=== PATIENT | male | born 1975 | race Caucasian/White ===

== ENCOUNTER 2022-08-19 14:32 | Emergency (ER) | payer OTHER ==
--- NOTE | 2022-08-19 16:08 | RAD REPORT ---
EXAM DESCRIPTION: RAD - Knee Left 3 View - 08/19/2022 3:16 pm CLINICAL HISTORY: PAIN COMPARISON: No comparisons TECHNIQUE: Left knee, 3 views. FINDINGS: No fracture, dislocation or periosteal reaction.No joint effusion seen. Advanced tricompar tmental osteoarthritic changes, with osseous remodeling. Mild joint space narrowing along the medial weight-bearing and patellofemoral compartments. No significant soft tissue swelling. IMPRESSION: No acute osseous abnormality. Tricompartmental osteoarthritic changes as above.
--- NOTE | 2022-08-19 16:10 | ER ---
Nurse's Notes [facility] Name: Yury Reina Age: 47 yrs Sex: Male : 1975 Arrival Date: 08/19/2022 Time: 14:34 Bed IW2 Private MD: Diagnosis: Pain in left knee Presentation: 08/19 14:47 Chief complaint: Patient states: he has been having knee pain for approx 6 months, and ap3 felt a "pop" last night that caused increased swelling. patient rates pain as a 7/10 on a pain scale at this time. Coronavirus screen: At this time, the client does not indicate any symptoms associated with coronavirus-19. Ebola Screen: No symptoms or risks identified at this time. Initial Sepsis Screen: Does the patient meet any 2 criteria? No. Patient's initial sepsis screen is negative. Does the patient have a suspected source of infection? No. Patient's initial sepsis screen is negative. Risk Assessment: Do you want to hurt yourself or someone else? Patient reports no desire to harm self or others. Onset of symptoms is unknown. 14:47 Method Of Arrival: Ambulatory ap3 14:47 Acuity: MANUEL 4 ap3 Triage Assessment: 14:49 General: Appears uncomfortable, Behavior is calm, cooperative, appropriate for age. ap3 Pain: Complains of pain in left knee Pain currently is 7 out of 10 on a pain scale. Neuro: Level of Consciousness is awake, alert, obeys commands, Oriented to person, place, time, situation. Cardiovascular: Patient's skin is warm and dry. Respiratory: Airway is patent Respiratory effort is even, unlabored, Respiratory pattern is regular, symmetrical. Historical: - Allergies: 14:49 No Known Allergies; ap3 - Home Meds: 14:49 None [Active]; ap3 - PMHx: 14:49 None; ap3 - Immunization history:: Client reports having NOT received the Covid vaccine. - Social history:: Smoking status: Patient reports use of chewing tobacco. Assessment: 16:29 Reassessment: Patient appears in no apparent distress at this time. Patient is alert, vg1 oriented x 3, equal unlabored respirations, skin warm/dry/pink. Pain: Complains of pain in left knee. Derm:. Musculoskeletal: Circulation, motion, and sensation intact. Vital Signs: 14:47 BP 109 / 77; Pulse 81; Resp 18; Temp 98.2; Pulse Ox 100% ; Weight 113.4 kg; Height 5 ap3 ft. 9 in. ; Pain 7/10; 14:47 Body Mass Index 36.92 (113.40 kg, 175.26 cm) ap3 14:47 Pain Scale: Adult ap3 ED Course: 14:34 Patient arrived in ED. mr 14:39 Billie Champion FNP-C is [facility]. kb 14:39 Haile Orellana MD is Attending Physician. kb 14:49 Triage completed. ap3 14:50 Arm band placed on left wrist. ap3 14:50 Patient has correct armband on for positive identification. ap3 15:18 Knee Left 3 View XRAY In Process Unspecified. EDMS 16:10 Jorge Gamino MD is Referral Physician. kb 16:36 No provider procedures requiring assistance completed. Patient did not have IV access vg1 during this emergency room visit. Administered Medications: 16:20 Drug: Ketorolac IM 30 mg Route: IM; Site: left deltoid; vg1 16:29 Follow up: Response: No adverse reaction vg1 Medication: 16:30 VIS not applicable for this client. vg1 Outcome: 16:10 Discharge ordered by . kb 16:30 Discharged to home ambulatory, with crutches. vg1 16:30 Condition: good 16:30 Discharge instructions given to patient, Instructed on discharge instructions, follow up and referral plans. medication usage, Demonstrated understanding of instructions, follow-up care, medications, Prescriptions given X 1. 16:30 Patient left the ED. vg1 Signatures: Dispatcher [employer] EDNY Billie Champion FNP-C FNP-Derek Ashlee Schreiber Nury Hernadez, RN RN brady3 Fern Royal RN RN vg1
--- NOTE | 2022-08-19 16:10 | EDPHYS ---
Physician Documentation [facility] Name: Yury Reina Age: 47 yrs Sex: Male : 1975 Arrival Date: 08/19/2022 Time: 14:34 Bed IW2 Private MD: ED Physician Haile Orellana HPI: 08/19 16:25 This 47 yrs old Male presents to ER via Ambulatory with complaints of Knee Pain. kb 16:25 The patient presents with pain, swelling, tenderness. The complaints affect the left kb knee. Context: The problem was sustained at home, resulted from an unknown cause, the patient can fully bear weight, the patient is able to ambulate. Onset: The symptoms/episode began/occurred 6 month(s) ago, and became worse last night. Modifying factors: The symptoms are alleviated by nothing. the symptoms are aggravated by movement, weight bearing. Associated signs and symptoms: Pertinent positives: swelling, Pertinent negatives calf tenderness, fever, nausea, numbness, rash, tingling, vomiting, warmth, weakness. Treatment prior to arrival includes: no previous treatment. Severity of symptoms: At their worst the symptoms were moderate, in the emergency department the symptoms are unchanged. The patient has not experienced similar symptoms in the past. The patient has not recently seen a physician. Patient is a 47-year-old male who presents for left knee pain that started 6 months ago. States he felt a pop last night while getting into bed and has had swelling and increased pain since then.. Historical: - Allergies: 14:49 No Known Allergies; ap3 - Home Meds: 14:49 None [Active]; ap3 - PMHx: 14:49 None; ap3 - Immunization history:: Client reports having NOT received the Covid vaccine. - Social history:: Smoking status: Patient reports use of chewing tobacco. ROS: 16:23 Constitutional: Negative for fever, chills, and weight loss. kb 16:23 MS/extremity: Positive for pain, swelling, tenderness, of the left knee. 16:23 All other systems are negative. Exam: 16:23 Constitutional: This is a well developed, well nourished patient who is awake, alert, kb and in no acute distress. Head/Face: Normocephalic, atraumatic. ENT: Moist Mucous membranes Cardiovascular: Regular rate and rhythm with a normal S1 and S2. No gallops, murmurs, or rubs. No pulse deficits. Respiratory: Respirations even and unlabored. No increased work of breathing. Talking in full sentences Skin: Warm, dry with normal turgor. Normal color. Neuro: Awake and alert, GCS 15, oriented to person, place, time, and situation. Moves all extremities. Normal gait. 16:23 Musculoskeletal/extremity: Extremities: grossly normal except: noted in the left knee: pain, swelling, tenderness, ROM: intact in all extremities, Circulation is intact in all extremities. Sensation intact. Weight bearing: able to fully bear weight. Vital Signs: 14:47 BP 109 / 77; Pulse 81; Resp 18; Temp 98.2; Pulse Ox 100% ; Weight 113.4 kg; Height 5 ap3 ft. 9 in. ; Pain 7/10; 14:47 Body Mass Index 36.92 (113.40 kg, 175.26 cm) ap3 14:47 Pain Scale: Adult ap3 MDM: 14:48 Patient medically screened. kb 16:24 Differential diagnosis: contusion, fracture, sprain, strain. Data reviewed: vital kb signs, nurses notes. Counseling: I had a detailed discussion with the patient and/or guardian regarding: the historical points, exam findings, and any diagnostic results supporting the discharge/admit diagnosis, radiology results, the need for outpatient follow up, a orthopedic surgeon, to return to the emergency department if symptoms worsen or persist or if there are any questions or concerns that arise at home. ED course: X-ray of knee ordered and reviewed. No acute fracture. Patient educated on diagnostic results and need for follow-up with orthopedics. Patient states he has an appointment with Ortho when he gets back home to [place], planning to go home on Wednesday.. 08/19 14:49 Order name: Knee Left 3 View XRAY; Complete Time: 16:09 kb 08/19 16:10 Order name: Andrew Wrap; Complete Time: 16:29 kb Administered Medications: 16:20 Drug: Ketorolac IM 30 mg Route: IM; Site: left deltoid; vg1 16:29 Follow up: Response: No adverse reaction vg1 Disposition: 17:25 Co-signature as Attending Physician, Haile Orellana MD I reviewed the patient's care rt provided by the Advanced Practice Provider and agree with the diagnosis and treatment plan. Disposition Summary: 08/19/22 16:10 Discharge Ordered Location: Home kb Condition: Stable kb Diagnosis - Pain in left knee kb Followup: kb - With: Emergency Department - When: As needed - Reason: Worsening of condition Followup: kb - With: Private Physician - When: 2 - 3 days - Reason: Recheck today's complaints, Continuance of care, Re-evaluation by your physician Followup: kb - With: Jorge Gamino MD - When: 2 - 3 days - Reason: Recheck today's complaints Discharge Instructions: - Discharge Summary Sheet kb - Musculoskeletal Pain kb - Acute Knee Pain, Adult, [id number] kb Forms: - Medication Reconciliation Form kb - Thank You Letter kb - Antibiotic Education kb - Prescription Opioid Use kb Prescriptions: - Diclofenac Sodium 75 mg Oral tablet,delayed release (DR/EC) - take 1 tablet by ORAL route 2 times per day As needed; 30 tablet; Refills: 0, kb Product Selection Permitted Signatures: Dispatcher [employer] Billie Maradiaga, MARKETING/SALES PERSON-C MARKETING/SALES PERSON-Nury Kelley RN RN ap3 Fern Royal RN RN vg1 Haile Orellana MD MD rt
[2022-08-19] MEDS ORDERED: KETOROLAC 30 MG/ML INJ ONE (16:19)
[2022-08-19 17:10] VITALS: BP 109/77; TEMP 98.2; O2SAT 100
== END 2022-08-19 16:30 | disposition home or self-care (01) ==
LOC: ER 14:32
DX: M25.562 Pain in left knee (principal)